=== PATIENT | female | born 1975 | race Caucasian/White ===

== ENCOUNTER 2024-01-19 09:14 | Emergency (ER) | payer OTHER ==
[2024-01-19 09:18] VITALS: BMI 28.1
[2024-01-19] MEDS ORDERED: ACETAMINOPHEN INJECTION 100 ML IVPB ONE (10:14)
[2024-01-19] MEDS ORDERED: FAMOTIDINE 20 MG/50 ML IVPB 20 MG/50 ML MG IVPB ONE (10:14)
[2024-01-19] MEDS ORDERED: ONDANSETRON 4 MG/2 ML VIAL ONE (10:14)
[2024-01-19] MEDS: ACETAMINOPHEN 1000 MG/100 ML BAG IVPB ONE (10:23)
[2024-01-19] MEDS: SODIUM CHLORIDE 1,000 ML IV STA (10:23)
[2024-01-19] MEDS: FAMOTIDINE 20 MG/50 ML IVPB 20 MG/50 ML MG IVPB ONE (10:23)
[2024-01-19 10:24] LABS: BASO % 0.7 % (0-2.0); EOS % 1.2 % (0-4.5); HEMATOCRIT 39.7 % (32.4-45.2); HEMOGLOBIN 13.2 GM/dL (10.7-15.3); LYMPH % 14.7 % (8-40); MCH 30.5 pg (25.7-33.7); MCHC 33.4 g/dl (32.0-36.0); MEAN CELL VOLUME 91.3 fl (80-96); MEAN PLT VOLUME 7.6 fl (7.5-11.1); MONO % 6.2 % (3.8-10.2); NEUT % 77.2 % (42.8-82.8); PLATELET COUNT 206 10^3/uL (134-434); RBC 4.35 M/mm3 (3.60-5.2); WHITE BLOOD COUNT 10.5 K/mm3 (4.0-10.0)
[2024-01-19] MEDS: ONDANSETRON 4 MG/2 ML VIAL IVPUSH ONE (10:24)
[2024-01-19 10:42] LABS: POTASSIUM 3.7 mmol/L (3.5-5.1)
[2024-01-19 10:44] LABS: CALCIUM 8.7 mg/dL (8.5-10.1)
[2024-01-19 10:45] LABS: ALBUMIN 3.4 g/dl (3.4-5.0); BLOOD UREA NITROGEN 8.3 mg/dL (7-18)
[2024-01-19 10:47] LABS: CREATININE 0.6 mg/dL (0.55-1.3)
[2024-01-19 10:49] LABS: BILIRUBIN,TOTAL 1.4 mg/dL (0.2-1); TOT PROT 6.6 g/dl (6.4-8.2)
[2024-01-19 10:51] LABS: HCG,QUALITATIVE URINE Negative
[2024-01-19 10:52] LABS: EPI CELLS >36 /uL (0-25.1); HYALINE CASTS 6 /uL (0-3.1); PH,URINE 5.5 (5.0-8.0); URINE APPEARANCE CLOUDY; URINE BACTERIA 794 /uL (0-1359); URINE BILIRUBIN NEGATIVE (NEGATIVE); URINE COLOR ORANGE; URINE GLUCOSE (UA) NEGATIVE (NEGATIVE); URINE KETONE TRACE (NEGATIVE); URINE LEUK ESTERASE NEGATIVE (NEGATIVE); URINE NITRITE NEGATIVE (NEGATIVE); URINE PROTEIN TRACE (NEGATIVE)
[2024-01-19 12:10] LABS: EPI CELLS 31 /uL (0-25.1); HYALINE CASTS 2 /uL (0-3.1); PH,URINE 5.5 (5.0-8.0); URINE APPEARANCE CLEAR; URINE BACTERIA 89 /uL (0-1359); URINE BILIRUBIN NEGATIVE (NEGATIVE); URINE COLOR YELLOW; URINE GLUCOSE (UA) NEGATIVE (NEGATIVE); URINE KETONE 1+ (NEGATIVE); URINE LEUK ESTERASE NEGATIVE (NEGATIVE); URINE NITRITE NEGATIVE (NEGATIVE); URINE PROTEIN NEGATIVE (NEGATIVE); URINE RBC 24 /uL (0-23.9); URINE WBC 43 /uL (0-25.8)
[2024-01-19] MEDS: morphine CARPU-JECT 2 MG/1 ML DISP.SYRIN IVPUSH ONE (12:12)
[2024-01-19 15:01] VITALS: BP 98/65; PULSE 70; RESP 20; TEMP 98.1
== END 2024-01-19 15:01 | disposition home or self-care (01) ==
LOC: JER 09:14
PROC: 3E033GC Introduction of Other Therapeutic Substance into Peripheral Vein, Percutaneous Approach (ICD-10-PCS; principal; 2024-01-19)
PROC: 3E033GC Introduction of Other Therapeutic Substance into Peripheral Vein, Percutaneous Approach (ICD-10-PCS; 2024-01-19)
PROC: 3E033NZ Introduction of Analgesics, Hypnotics, Sedatives into Peripheral Vein, Percutaneous Approach (ICD-10-PCS; 2024-01-19)
PROC: 3E033GC Introduction of Other Therapeutic Substance into Peripheral Vein, Percutaneous Approach (ICD-10-PCS; 2024-01-19)
DX: R10.31 Right lower quadrant pain (principal); R10.32 Left lower quadrant pain; R50.9 Fever, unspecified
CPT/HCPCS: 36415; 74177-TC; 80053; 81003; 83690; 84703; 85025; 87086; 99285-25; J0131; Q9967

== ENCOUNTER 2024-06-24 20:32 | Emergency (ER) | payer OTHER ==
[2024-06-24 21:05] VITALS: BP 126/78; PULSE 71; RESP 16; TEMP 98.6; BMI 31.1
[2024-06-24] MEDS ORDERED: MECLIZINE HCL 25 MG TABLET (FP) ONE (23:29)
[2024-06-24] MEDS: MECLIZINE HCL 25 MG TABLET (FP) PO ONE (23:32)
== END 2024-06-25 06:13 | disposition home or self-care (01) ==
LOC: JER 20:32 → JERFT 20:32 → JER 06-25 06:13
DX: R42 Dizziness and giddiness (principal); H61.23 Impacted cerumen, bilateral; R05.9 Cough, unspecified; R09.81 Nasal congestion; R51.9 Headache, unspecified; R11.0 Nausea; Z20.822 Contact with and (suspected) exposure to COVID-19
CPT/HCPCS: 0241U-QW; 70450-TC; 93005; 93010; 99285-25